=== PATIENT | female | born 1975 | race American Indian/Alaskan Native ===

== ENCOUNTER 2024-01-08 20:16 | Emergency (ER) | payer MEDICAID ==
[~2024-01-08] VITALS: Ht 165.1 cm; Wt 59.1 kg
[~2024-01-08 20:16] MED LIST: DIAZ2TAB3 PO; DOCU-171 PO; NYST15CR36 TP; OLAN15TA35 PO; OXYC-658 PO; TEMA15CA5 PO; ZONI100C87 PO
[2024-01-08 20:57] LABS: BASOPHILS # (AUTO) 0.1 X10'3 (0-0.2); BASOPHILS % (AUTO) 1.1 % (0-1); EOSINOPHILS # (AUTO) 0.2 X10'3 (0-0.9); EOSINOPHILS % (AUTO) 3.3 % (0-6); HEMATOCRIT 33.3 % (35.0-45.0); LYMPHOCYTES # (AUTO) 3.2 X10'3 (1.1-4.8); LYMPHOCYTES % (AUTO) 43.5 % (21-51); MEAN CORPUSCULAR HEMOGLOBIN 26.4 PG (27.0-31.0); MEAN CORPUSCULAR HGB CONC 32.9 g/dL (33.0-36.5); MEAN CORPUSCULAR VOLUME 80.4 FL (78-98); MEAN PLATELET VOLUME 7.2 FL (7.4-10.4); MONOCYTES # (AUTO) 0.5 X10'3 (0-0.9); MONOCYTES % (AUTO) 7.3 % (2-12); NEUTROPHILS # (AUTO) 3.3 X10'3 (1.8-7.7); NEUTROPHILS % (AUTO) 44.8 % (42-75); PLATELET COUNT 365 X10'3 (140-440); RED BLOOD COUNT 4.15 X10'6 (4.20-5.60); RED CELL DISTRIBUTION WIDTH 15.5 % (11.5-14.5); WHITE BLOOD COUNT 7.3 X10'3 (4.5-11.0)
[2024-01-08 21:10] LABS: ALANINE AMINOTRANSFERASE 24 U/L (12-78); ALBUMIN 3.5 G/DL (3.4-5.0); ALBUMIN/GLOBULIN RATIO 1.2 (1.1-1.5); ALKALINE PHOSPHATASE 59 IU/L (46-116); ANION GAP 6 (8-16); ASPARTATE AMINO TRANSFERASE 17 U/L (10-37); BILIRUBIN,TOTAL 0.4 MG/DL (0.1-1.0); BLOOD UREA NITROGEN 18 MG/DL (7-18); BUN/CREATININE RATIO 26.5 (10.0-20.0); CALCIUM 8.2 MG/DL (8.5-10.1); CHLORIDE 108 MMOL/L (99-107); CREATININE 0.68 MG/DL (0.40-0.90); ETHANOL < 10 MG/DL (<10); GLUCOSE 99 MG/DL (70-104); POTASSIUM 3.2 MMOL/L (3.5-5.1); SODIUM 141 MMOL/L (135-145); TOTAL CARBON DIOXIDE 27.3 MMOL/L (24-32); TOTAL PROTEIN 6.5 G/DL (6.4-8.2); eCRCL 92 ML/MIN; eGFR > 90 ML/MIN
[2024-01-08 23:53] LABS: SALICYLATE 3.2 MG/DL (4.0-20.0)
[2024-01-08 23:58] LABS: ACETAMINOPHEN < 2.0 UG/ML (10-30)
[2024-01-09 00:22] LABS: URINE HCG NEGATIVE (NEG)
[2024-01-09 00:25] LABS: BILIRUBIN,URINE NEGATIVE (Neg); CLARITY,URINE SLIGHTLY CLOUDY (Clear); GLUCOSE, URINE NEGATIVE (Neg); KETONES,URINE NEGATIVE (Neg); LEUKOCYTE ESTERASE ,URINE NEGATIVE (Neg); OCCULT BLOOD,URINE NEGATIVE (Neg); PH,URINE 5.5 (4.8-8.0); PROTEIN,URINE NEGATIVE (Neg); UROBILINOGEN,URINE 0.2 E.U/dL (0.2-1.0)
[2024-01-09 00:26] LABS: NITRITES, URINE NEGATIVE (Neg)
[2024-01-09 00:27] LABS: COLOR,URINE DARK YELLOW (Yellow); UA COLLECTION TYPE CLN CATCH MIDSTREAM
[2024-01-09 00:31] LABS: MUCUS STRANDS MANY /LPF (Neg); SQUAMOUS EPITHELIAL CELL,UR MODERATE /LPF (FEW); TRANSITIONAL EPI CELLS,URINE FEW /HPF
[2024-01-09 00:32] LABS: BACTERIA,URINE 2+ /HPF (Neg); HYALINE CASTS 0-3 /LPF (NEGATIVE); RBC,URINE 0-2 /HPF (0-2)
[2024-01-09 00:42] LABS: URINE AMPHETAMINE SCREEN POSITIVE (Neg); URINE BARBITUATE SCREEN POSITIVE (Neg); URINE BENZODIAZEPINES SCREEN NEGATIVE (Neg); URINE CANNABINOID SCREEN POSITIVE (Neg); URINE COCAINE SCREEN NEGATIVE (Neg); URINE METHADONE SCREEN NEGATIVE (Neg); URINE OPIATE SCREEN NEGATIVE (Neg); URINE PHENCYCLIDINE SCREEN NEGATIVE (Neg)
[2024-01-09] MEDS ORDERED: OLAN10TA73 PO (03:02)
[2024-01-09] MEDS ORDERED: ALPR0.5T9 PO (03:02)
[2024-01-09] MEDS ORDERED: PHEN64.8 PO (03:02)
[2024-01-09] MEDS ORDERED: HYDR-3686 PO (03:02)
[2024-01-09] MEDS ORDERED: hydrOXYzine 25 MG tablet PO PRN (05:25)
[2024-01-09] MEDS ORDERED: ALPRAZolam 0.5mg tablet PO PRN (05:25)
[2024-01-09 08:24] LABS: BASOPHILS # (AUTO) 0.1 X10'3 (0-0.2); BASOPHILS % (AUTO) 1.3 % (0-1); EOSINOPHILS # (AUTO) 0.2 X10'3 (0-0.9); EOSINOPHILS % (AUTO) 3.7 % (0-6); HEMOGLOBIN 11.8 g/dl (12.0-16.0); LYMPHOCYTES % (AUTO) 37.6 % (21-51); MEAN CORPUSCULAR HEMOGLOBIN 26.7 PG (27.0-31.0); MEAN CORPUSCULAR HGB CONC 33.6 g/dL (33.0-36.5); MEAN CORPUSCULAR VOLUME 79.4 FL (78-98); MEAN PLATELET VOLUME 7.1 FL (7.4-10.4); MONOCYTES # (AUTO) 0.4 X10'3 (0-0.9); MONOCYTES % (AUTO) 7.8 % (2-12); NEUTROPHILS # (AUTO) 2.7 X10'3 (1.8-7.7); NEUTROPHILS % (AUTO) 49.6 % (42-75); PLATELET COUNT 377 X10'3 (140-440); RED BLOOD COUNT 4.41 X10'6 (4.20-5.60); RED CELL DISTRIBUTION WIDTH 15.5 % (11.5-14.5); WHITE BLOOD COUNT 5.4 X10'3 (4.5-11.0)
[2024-01-09 08:36] LABS: ALANINE AMINOTRANSFERASE 21 U/L (12-78); ALBUMIN 3.2 G/DL (3.4-5.0); ALKALINE PHOSPHATASE 54 IU/L (46-116); ANION GAP 6 (8-16); ASPARTATE AMINO TRANSFERASE 14 U/L (10-37); BILIRUBIN,TOTAL 0.5 MG/DL (0.1-1.0); BLOOD UREA NITROGEN 14 MG/DL (7-18); BUN/CREATININE RATIO 17.7 (10.0-20.0); CALCIUM 8.2 MG/DL (8.5-10.1); CHLORIDE 109 MMOL/L (99-107); CREATININE 0.79 MG/DL (0.40-0.90); GLUCOSE 84 MG/DL (70-104); POTASSIUM 3.9 MMOL/L (3.5-5.1); SODIUM 142 MMOL/L (135-145); TOTAL CARBON DIOXIDE 27.3 MMOL/L (24-32); TOTAL PROTEIN 6.3 G/DL (6.4-8.2); eCRCL 79 ML/MIN; eGFR 78 ML/MIN
[2024-01-09] MEDS: phenobarbital 30mg tablet PO SCH (09:41)
[2024-01-09 10:58] VITALS: BP 123/83; PULSE 87; RESP 18; O2SAT 96
[2024-01-09 12:20] VITALS: TEMP 97.8
[2024-01-09] MEDS ORDERED: olanzapine 10mg tablet PO SCH (21:00)
== END 2024-01-09 12:24 | disposition home or self-care (01) ==
LOC: ER 20:17
DX: R56.9 Unspecified convulsions (principal); Z88.2 Allergy status to sulfonamides; Z88.8 Allergy status to other drugs, medicaments and biological substances; Z20.822 Contact with and (suspected) exposure to COVID-19; Z59.00 Homelessness unspecified; E87.8 Other disorders of electrolyte and fluid balance, not elsewhere classified; Z73.6 Limitation of activities due to disability
CPT/HCPCS: 36415; 80053; 80305; 80320; 80329; 81001; 81025; 85025; 87088; 87811; 99284

== ENCOUNTER 2024-01-12 01:08 | Emergency (ER) | payer MEDICAID ==
[~2024-01-12] VITALS: Ht 165.1 cm; Wt 43.1 kg
[~2024-01-12 01:08] MED LIST changes: +ALPR0.5T9 PO; -DIAZ2TAB3 PO; -DOCU-171 PO; +HYDR-3686 PO; -NYST15CR36 TP; +OLAN10TA73 PO; -OLAN15TA35 PO; -OXYC-658 PO; +PHEN64.8 PO; -TEMA15CA5 PO; -ZONI100C87 PO
[2024-01-12 01:10] VITALS: BP 132/82; PULSE 95; RESP 18; TEMP 99.6; O2SAT 98
== END 2024-01-12 10:08 | disposition left against medical advice (07) ==
LOC: ER 01:09
DX: R50.9 Fever, unspecified (principal); R53.1 Weakness; Z53.21 Procedure and treatment not carried out due to patient leaving prior to being seen by health care provider

== ENCOUNTER 2024-01-19 08:27 | Outpatient (CLI) | payer MEDICAID | END 2024-01-19 23:59 | disposition home or self-care (01) | LOC: RAD 08:27 | PROVIDERS: ATTEND General Practice | DX: R05.1 Acute cough (principal) | CPT/HCPCS: 71046 ==

== ENCOUNTER 2024-01-20 13:48 | Emergency (ER) | payer MEDICAID ==
[~2024-01-20] VITALS: Ht 165.1 cm; Wt 51.8 kg
[2024-01-20 13:56] VITALS: PULSE 97; TEMP 98
[2024-01-20 14:47] LABS: BASOPHILS # (AUTO) 0.1 X10'3 (0-0.2); BASOPHILS % (AUTO) 1.4 % (0-1); EOSINOPHILS # (AUTO) 0.1 X10'3 (0-0.9); EOSINOPHILS % (AUTO) 0.7 % (0-6); HEMATOCRIT 34.9 % (35.0-45.0); HEMOGLOBIN 11.4 g/dl (12.0-16.0); LYMPHOCYTES % (AUTO) 20.4 % (21-51); MEAN CORPUSCULAR HEMOGLOBIN 26.1 PG (27.0-31.0); MEAN CORPUSCULAR HGB CONC 32.6 g/dL (33.0-36.5); MEAN CORPUSCULAR VOLUME 80.2 FL (78-98); MEAN PLATELET VOLUME 6.9 FL (7.4-10.4); MONOCYTES # (AUTO) 0.6 X10'3 (0-0.9); MONOCYTES % (AUTO) 6.6 % (2-12); NEUTROPHILS # (AUTO) 6.9 X10'3 (1.8-7.7); NEUTROPHILS % (AUTO) 70.9 % (42-75); PLATELET COUNT 455 X10'3 (140-440); RED BLOOD COUNT 4.36 X10'6 (4.20-5.60); RED CELL DISTRIBUTION WIDTH 15.2 % (11.5-14.5); WHITE BLOOD COUNT 9.7 X10'3 (4.5-11.0)
[2024-01-20 15:00] LABS: ALBUMIN 3.1 G/DL (3.4-5.0); ANION GAP 9 (8-16); BLOOD UREA NITROGEN 17 MG/DL (7-18); BUN/CREATININE RATIO 23.6 (10.0-20.0); CALCIUM 8.6 MG/DL (8.5-10.1); CHLORIDE 105 MMOL/L (99-107); CREATININE 0.72 MG/DL (0.40-0.90); GLUCOSE 116 MG/DL (70-104); POTASSIUM 4.1 MMOL/L (3.5-5.1); PRO BRAIN NATRIURETIC PEPTIDE 71 PG/ML (0-125); SODIUM 140 MMOL/L (135-145); TOTAL CARBON DIOXIDE 26.5 MMOL/L (24-32); eCRCL 79 ML/MIN; eGFR 87 ML/MIN
[2024-01-20 15:09] LABS: D-DIMER 0.55 MG/L FEU (0-0.50)
[2024-01-20] MEDS ORDERED: iohexol 350MG/ML 100ml bottle IV ONE (15:41)
[2024-01-20 17:00] VITALS: BP 130/81; RESP 18; O2SAT 99
== END 2024-01-20 17:03 | disposition home or self-care (01) ==
LOC: ER 13:48
DX: R53.1 Weakness (principal); R05.9 Cough, unspecified; Z88.2 Allergy status to sulfonamides; Z88.8 Allergy status to other drugs, medicaments and biological substances
CPT/HCPCS: 36415; 71275; 80048; 83880; 84484; 85025; 85379; 93005; 99285; J3490; Q9967

== ENCOUNTER 2024-06-20 21:00 | Inpatient (IN) | payer MEDICAID ==
[~2024-06-20] VITALS: Ht 165.1 cm; Wt 56.7 kg
[2024-06-20] MEDS: ALPRAZolam 0.5mg tablet PO ONE (22:15)
[2024-06-20] MEDS ORDERED: NICOTINE POLACRILEX 2 MG LOZENGE BC PRN (22:25)
[2024-06-20] MEDS ORDERED: magnesium hydroxide 30ml (MOM) UD suspension PO PRN (22:25)
[2024-06-20 22:32] VITALS: RESP 25
[2024-06-20] MEDS: ALPRAZolam 0.5mg tablet PO PRN (23:03)
[2024-06-20] MEDS: olanzapine 10mg tablet PO ONE (23:04)
[2024-06-20] MEDS: traZODone 150mg tablet PO ONE (23:15)
[2024-06-21 07:00] VITALS: RESP 14; O2SAT 99
[2024-06-21 08:00] VITALS: BP 128/82; PULSE 61; RESP 14; TEMP 97.5; O2SAT 99
[2024-06-21] MEDS: nicotine 21mg patch - 24 hr TD SCH (08:00)
[2024-06-21] MEDS: olanzapine 10mg tablet PO SCH (09:12)
[2024-06-21] MEDS ORDERED: ibuprofen tablet 400 MG TABLET PO PRN (09:30)
[2024-06-21 12:01] LABS: CHOL/HDL RATIO 1.6 (0.00-4.99); CHOLESTEROL 112 MG/DL (0-200); HDL CHOLESTEROL 68 MG/DL (35-60); LDL CHOLESTEROL 27 MG/DL (50-100); THYROID STIMULATING HORMONE 1.64 ulU/ml (0.34-4.50); TRIGLYCERIDES 73 MG/DL (20-135)
[2024-06-21 12:06] LABS: HEMOGLOBIN A1C 5.8 % (4.5-6.2)
[2024-06-21 19:00] VITALS: RESP 14; O2SAT 99
[2024-06-21 20:00] VITALS: BP 126/73; PULSE 71; RESP 14; TEMP 98.8; O2SAT 99
[2024-06-21] MEDS: traZODone 150mg tablet PO SCH (20:39)
[2024-06-22 07:00] VITALS: RESP 16; O2SAT 97
[2024-06-22 08:00] VITALS: BP 118/75; PULSE 66; RESP 16; TEMP 98.3; O2SAT 97
[2024-06-22] MEDS: multivitamins, therapeutics tablet PO SCH (08:47)
[2024-06-22 12:00] LABS: BASOPHILS # (AUTO) 0.1 X10'3 (0-0.2); EOSINOPHILS # (AUTO) 0.2 X10'3 (0-0.9); EOSINOPHILS % (AUTO) 2.4 % (0-6); HEMATOCRIT 36.2 % (35.0-45.0); LYMPHOCYTES % (AUTO) 29.6 % (21-51); MEAN CORPUSCULAR HEMOGLOBIN 26.9 PG (27.0-31.0); MEAN CORPUSCULAR HGB CONC 33.3 g/dL (33.0-36.5); MEAN CORPUSCULAR VOLUME 80.8 FL (78-98); MEAN PLATELET VOLUME 6.6 FL (7.4-10.4); MONOCYTES # (AUTO) 0.5 X10'3 (0-0.9); MONOCYTES % (AUTO) 7.7 % (2-12); NEUTROPHILS % (AUTO) 59.3 % (42-75); PLATELET COUNT 431 X10'3 (140-440); RED BLOOD COUNT 4.48 X10'6 (4.20-5.60); RED CELL DISTRIBUTION WIDTH 14.7 % (11.5-14.5); WHITE BLOOD COUNT 6.8 X10'3 (4.5-11.0)
[2024-06-22 12:21] LABS: ALANINE AMINOTRANSFERASE 21 U/L (12-78); ALBUMIN/GLOBULIN RATIO 0.8 (1.1-1.5); ALKALINE PHOSPHATASE 52 IU/L (46-116); ANION GAP 1 (8-16); ASPARTATE AMINO TRANSFERASE 15 U/L (10-37); BILIRUBIN,TOTAL 0.3 MG/DL (0.1-1.0); BLOOD UREA NITROGEN 18 MG/DL (7-18); BUN/CREATININE RATIO 26.9 (10.0-20.0); CALCIUM 8.8 MG/DL (8.5-10.1); CHLORIDE 101 MMOL/L (99-107); CREATININE 0.67 MG/DL (0.40-0.90); GLUCOSE 95 MG/DL (70-104); POTASSIUM 4.6 MMOL/L (3.5-5.1); SODIUM 134 MMOL/L (135-145); TOTAL CARBON DIOXIDE 32.4 MMOL/L (24-32); TOTAL PROTEIN 6.7 G/DL (6.4-8.2); eCRCL 79 ML/MIN; eGFR > 90 ML/MIN
[2024-06-22 19:00] VITALS: RESP 17; O2SAT 93
[2024-06-22 19:10] VITALS: BP 118/68; PULSE 80; RESP 17; TEMP 98.1; O2SAT 93
[2024-06-22 21:20] LABS: BILIRUBIN,URINE NEGATIVE (Neg); COLOR,URINE YELLOW (Yellow); GLUCOSE, URINE NEGATIVE (Neg); KETONES,URINE NEGATIVE (Neg); LEUKOCYTE ESTERASE ,URINE NEGATIVE (Neg); NITRITES, URINE NEGATIVE (Neg); OCCULT BLOOD,URINE NEGATIVE (Neg); PROTEIN,URINE NEGATIVE (Neg); UROBILINOGEN,URINE 0.2 E.U/dL (0.2-1.0)
[2024-06-22 21:40] LABS: BACTERIA,URINE FEW /HPF (Neg); CLARITY,URINE SLIGHTLY CLOUDY (Clear); MUCUS STRANDS FEW /LPF (Neg); SQUAMOUS EPITHELIAL CELL,UR FEW /LPF (FEW); UA COLLECTION TYPE NON-SPECIFIED
[2024-06-23 07:00] VITALS: RESP 14; O2SAT 98
[2024-06-23 08:00] VITALS: BP 109/81; PULSE 91; RESP 16; TEMP 97.7; O2SAT 98
[2024-06-23 09:18] LABS: C DIFF ANTIGEN NEGATIVE (NEGATIVE); C DIFF SPECIMEN=DIARRHEA? ACCEPTABLE; C DIFFICILE TOXINS A&B NEGATIVE (Neg)
[2024-06-23] MEDS: lactose-reduced food (Ensure High Protein) 237ml bottle PO SCH (13:45)
[2024-06-23] MEDS ORDERED: loperamide 2mg capsule PO PRN (14:05)
[2024-06-23] MEDS: loperamide 2mg capsule PO ONE (15:22)
[2024-06-23] MEDS: LIDOcaine 5% patch TP SCH (15:24)
[2024-06-23] MEDS: NICOTINE POLACRILEX 2 MG LOZENGE BC PRN (16:50)
[2024-06-23] MEDS: ALPRAZolam 0.5mg tablet PO ONE (18:41)
[2024-06-23] MEDS: OLANZapine 5mg rapidly disint. tablet PO ONE (18:41)
[2024-06-23 20:00] VITALS: BP 106/71; PULSE 92; RESP 14; TEMP 98; O2SAT 100
[2024-06-24 07:00] VITALS: BP 98/62; PULSE 82; RESP 14; TEMP 98.1; O2SAT 99
[2024-06-24] MEDS: loperamide 2mg capsule PO PRN (08:33)
[2024-06-24] MEDS ORDERED: OLANZapine 5mg rapidly disint. tablet PO ONE (10:20)
[2024-06-24] MEDS: diphenhydrAMINE 25mg capsule PO ONE (10:31)
[2024-06-24] MEDS: LORazepam 1 MG tablet PO ONE (10:31)
[2024-06-24] MEDS: haloperidol 5mg tablet PO ONE (10:31)
[2024-06-24 19:00] VITALS: RESP 16; O2SAT 91
[2024-06-24 19:50] VITALS: BP 104/63; PULSE 91; RESP 16; TEMP 98.6; O2SAT 98
[2024-06-24 23:22] VITALS: RESP 16; O2SAT 98
[2024-06-25 07:00] VITALS: BP 105/65; PULSE 83; RESP 16; TEMP 97.4; O2SAT 98
[2024-06-25] MEDS: baclofen 10mg tablet PO PRN (18:34)
[2024-06-25 19:00] VITALS: RESP 16; O2SAT 98
[2024-06-25 19:56] VITALS: BP 115/73; PULSE 90; RESP 16; TEMP 98.8; O2SAT 98
[2024-06-26 07:00] VITALS: BP 95/65; PULSE 96; RESP 16; TEMP 97.2
[2024-06-26] MEDS: busPIRone 5mg tablet PO SCH (07:23)
[2024-06-26 19:00] VITALS: RESP 16; O2SAT 98
[2024-06-26 19:13] VITALS: BP 111/60; PULSE 96; RESP 16; TEMP 97.8; O2SAT 98
[2024-06-26] MEDS: haloperidol 5mg tablet PO ONE (19:41)
[2024-06-26] MEDS: ALPRAZolam 0.5mg tablet PO ONE (19:42)
[2024-06-27 07:20] VITALS: BP 112/67; PULSE 92; RESP 16; TEMP 97.3; O2SAT 97
[2024-06-27 07:47] VITALS: RESP 16; O2SAT 97
[2024-06-27] MEDS: traMADol 50MG tablet PO PRN (11:38)
[2024-06-27 19:00] VITALS: RESP 16; O2SAT 98
[2024-06-27 20:00] VITALS: BP 103/66; PULSE 91; RESP 16; TEMP 97.9; O2SAT 98
[2024-06-28 07:30] VITALS: BP 107/63; PULSE 91; RESP 16; TEMP 97.4; O2SAT 97
[2024-06-28 19:00] VITALS: BP 106/63; PULSE 98; RESP 16; TEMP 98.3; O2SAT 99
[2024-06-28 20:40] VITALS: BP 99/64; PULSE 96
[2024-06-28] MEDS: prazosin 1mg capsule PO SCH (21:00)
[2024-06-28 22:00] VITALS: BP 114/64; PULSE 99; RESP 16; TEMP 97.6; O2SAT 99
[2024-06-29 07:30] VITALS: BP 100/62; PULSE 95; RESP 12; TEMP 97.5; O2SAT 98
[2024-06-29 07:49] VITALS: RESP 12; O2SAT 98
[2024-06-29 19:00] VITALS: RESP 16; O2SAT 96
[2024-06-29 20:00] VITALS: BP 108/64; PULSE 98; RESP 16; TEMP 98.6; O2SAT 96
[2024-06-29] MEDS: prazosin 1mg capsule PO SCH (21:00)
[2024-06-29] MEDS: temazepam 15mg capsule PO PRN (21:07)
[2024-06-30 07:00] VITALS: RESP 17; O2SAT 97
[2024-06-30] MEDS: lactose-reduced food (Ensure Enlive) - 237ml bottle PO SCH (07:30)
[2024-06-30 08:00] VITALS: BP 109/65; PULSE 71; RESP 14; TEMP 98.5; O2SAT 97
[2024-06-30 15:18] VITALS: RESP 17; O2SAT 97
[2024-06-30 20:00] VITALS: BP 99/60; PULSE 96; RESP 16; TEMP 98.8; O2SAT 97
[2024-06-30] MEDS: OLANZAPINE 5 MG TABLET PO SCH (20:33)
[2024-07-01 07:00] VITALS: RESP 16; O2SAT 95
[2024-07-01] MEDS: olanzapine 10mg tablet PO SCH (07:43)
[2024-07-01 08:00] VITALS: BP 116/64; PULSE 91; RESP 16; TEMP 98; O2SAT 95
[2024-07-01] MEDS: nicotine 21mg patch - 24 hr TD SCH (12:18)
[2024-07-01 19:33] VITALS: BP 99/67; PULSE 94; RESP 18; TEMP 98.3; O2SAT 96
[2024-07-02 07:00] VITALS: RESP 14; O2SAT 97
[2024-07-02 08:00] VITALS: BP 107/68; PULSE 85; RESP 14; TEMP 98.2; O2SAT 97
[2024-07-02 19:09] VITALS: BP 113/71; PULSE 95; RESP 18; TEMP 97.6; O2SAT 96
[2024-07-03 07:00] VITALS: RESP 16; O2SAT 97
[2024-07-03 07:38] VITALS: BP 101/66; PULSE 82; RESP 12; TEMP 97.9; O2SAT 97
[2024-07-03 20:00] VITALS: BP 102/64; PULSE 83; RESP 18; TEMP 98.5; O2SAT 97
[2024-07-03 23:55] VITALS: RESP 18
[2024-07-04 07:00] VITALS: RESP 16; O2SAT 97
[2024-07-04 08:00] VITALS: BP 88/63; PULSE 83; RESP 16; TEMP 97.2; O2SAT 97
[2024-07-04] MEDS ORDERED: HYDR-3686 PO (13:49)
[2024-07-04] MEDS ORDERED: MULT-25 PO (13:49)
[2024-07-04] MEDS ORDERED: NICO-687 TD (13:49)
[2024-07-04] MEDS ORDERED: PHEN64.8 PO (13:49)
[2024-07-04 19:00] VITALS: RESP 15; O2SAT 96
[2024-07-04 20:00] VITALS: BP 130/66; PULSE 94; RESP 16; TEMP 97.2; O2SAT 18
[2024-07-04] MEDS ORDERED: OLAN10TA73 PO (20:24)
[2024-07-04] MEDS: traZODone 50mg tablet PO ONE (23:07)
[2024-07-05 07:00] VITALS: RESP 16; O2SAT 96
[2024-07-05 08:00] VITALS: BP 104/58; PULSE 95; RESP 16; TEMP 97.6; O2SAT 96
[2024-07-05 19:00] VITALS: RESP 15; O2SAT 96
[2024-07-05 20:00] VITALS: BP 104/58; PULSE 94; RESP 15; TEMP 97.7; O2SAT 96
[2024-07-06 07:00] VITALS: BP 102/62; PULSE 83; RESP 16; TEMP 98.3; O2SAT 100
[2024-07-06] MEDS: lactose-reduced food (Ensure Enlive) - 237ml bottle PO SCH (13:04)
[2024-07-06] MEDS: OLANZapine 5mg rapidly disint. tablet PO ONE (13:33)
[2024-07-06] MEDS: ALPRAZolam 0.5mg tablet PO ONE (13:33)
[2024-07-06] MEDS: phenoBARBITAL 30mg tablet PO SCH (16:27)
[2024-07-06 19:00] VITALS: RESP 20; O2SAT 95
[2024-07-06 20:00] VITALS: BP 125/86; PULSE 81; RESP 20; TEMP 97; O2SAT 95
[2024-07-07 07:00] VITALS: RESP 12; O2SAT 97
[2024-07-07] MEDS: OLANZAPINE 5 MG TABLET PO SCH (07:51)
[2024-07-07 08:00] VITALS: BP 115/73; PULSE 84; RESP 12; TEMP 97.2; O2SAT 97
[2024-07-07] MEDS: LORazepam 2 mg/ml vial IM ONE (16:07)
[2024-07-07] MEDS: mag hydrox/Alum hydrox/simeth 30ml oral suspension PO PRN (18:40)
[2024-07-07 19:00] VITALS: BP 115/73; PULSE 84; RESP 12; RESP 15; TEMP 97.2; O2SAT 97
[2024-07-07] MEDS: clotrimazole topical cream 15gm tube TP SCH (20:39)
[2024-07-08 07:00] VITALS: RESP 18; O2SAT 97
[2024-07-08 08:00] VITALS: BP 109/63; PULSE 88; RESP 16; TEMP 97.1; O2SAT 97
[2024-07-08 19:00] VITALS: BP 103/61; PULSE 99; RESP 18; TEMP 98.2; O2SAT 98
[2024-07-09 00:35] VITALS: BP 103/61; PULSE 99; RESP 18; TEMP 98.2; O2SAT 98
[2024-07-09 07:00] VITALS: RESP 16; O2SAT 96
[2024-07-09] MEDS: phenoBARBITAL 30mg tablet PO SCH (07:51)
[2024-07-09 08:00] VITALS: BP 102/62; PULSE 78; RESP 16; TEMP 97.4; O2SAT 96
[2024-07-09 19:00] VITALS: RESP 16; O2SAT 97
[2024-07-09 20:00] VITALS: BP 112/74; PULSE 94; RESP 16; TEMP 97.7; O2SAT 97
[2024-07-10 07:30] VITALS: BP 112/71; PULSE 87; RESP 16; TEMP 97.6; O2SAT 100
== END 2024-07-10 09:40 | disposition home or self-care (01) | DRG 753 ==
LOC: ADULT MH 21:00
PROVIDERS: ADMIT Psychiatry & Neurology Psychiatry; ATTEND Psychiatry & Neurology Psychiatry
PROC: GZHZZZZ Group Psychotherapy (ICD-10-PCS; principal; 2024-06-20)
PROC: GZ51ZZZ Individual Psychotherapy, Behavioral (ICD-10-PCS; 2024-06-22)
DX: F31.9 Bipolar disorder, unspecified (principal); R45.851 Suicidal ideations; F15.10 Other stimulant abuse, uncomplicated; F43.11 Post-traumatic stress disorder, acute; F41.1 Generalized anxiety disorder; F17.210 Nicotine dependence, cigarettes, uncomplicated; R19.7 Diarrhea, unspecified; M54.50 Low back pain, unspecified; G47.8 Other sleep disorders; Z20.822 Contact with and (suspected) exposure to COVID-19; Z88.1 Allergy status to other antibiotic agents; Z79.899 Other long term (current) drug therapy; Z59.00 Homelessness unspecified; Z88.6 Allergy status to analgesic agent; Z88.8 Allergy status to other drugs, medicaments and biological substances; Z76.5 Malingerer [conscious simulation]
CPT/HCPCS: 36415; 80053; 80061; 81001; 83036; 84443; 85025; 87081; 87088; 87324; 87449; 87811; J2060; Q0163

== ENCOUNTER 2024-07-19 08:53 | Emergency (ER) | payer MEDICAID ==
[~2024-07-19 08:53] MED LIST changes: -ALPR0.5T9 PO; +MULT-25 PO; +NICO-687 TD; -PHEN64.8 PO
== END 2024-07-19 11:25 | disposition left against medical advice (07) ==
LOC: ER 08:53
DX: M25.569 Pain in unspecified knee (principal); Z53.21 Procedure and treatment not carried out due to patient leaving prior to being seen by health care provider

== ENCOUNTER 2024-09-03 22:36 | Emergency (ER) | payer MEDICAID ==
[~2024-09-03] VITALS: Ht 165.1 cm; Wt 56.8 kg
[2024-09-03 22:44] VITALS: BP 124/68
[2024-09-03 23:21] LABS: BASOPHILS # (AUTO) 0.1 X10'3 (0-0.2); BASOPHILS % (AUTO) 1.1 % (0-1); EOSINOPHILS # (AUTO) 0.2 X10'3 (0-0.9); EOSINOPHILS % (AUTO) 2.3 % (0-6); HEMATOCRIT 30.4 % (35.0-45.0); HEMOGLOBIN 9.9 g/dl (12.0-16.0); LYMPHOCYTES # (AUTO) 2.6 X10'3 (1.1-4.8); LYMPHOCYTES % (AUTO) 33.4 % (21-51); MEAN CORPUSCULAR HEMOGLOBIN 24.7 PG (27.0-31.0); MEAN CORPUSCULAR HGB CONC 32.4 g/dL (33.0-36.5); MEAN CORPUSCULAR VOLUME 76.3 FL (78-98); MEAN PLATELET VOLUME 7.3 FL (7.4-10.4); MONOCYTES # (AUTO) 0.8 X10'3 (0-0.9); NEUTROPHILS # (AUTO) 4.1 X10'3 (1.8-7.7); NEUTROPHILS % (AUTO) 53.2 % (42-75); PLATELET COUNT 348 X10'3 (140-440); RED BLOOD COUNT 3.99 X10'6 (4.20-5.60); RED CELL DISTRIBUTION WIDTH 15.1 % (11.5-14.5); WHITE BLOOD COUNT 7.7 X10'3 (4.5-11.0)
[2024-09-03 23:34] LABS: ALBUMIN 3.4 G/DL (3.4-5.0); ANION GAP 9 (8-16); BLOOD UREA NITROGEN 15 MG/DL (7-18); BUN/CREATININE RATIO 16.1 (10.0-20.0); CALCIUM 8.4 MG/DL (8.5-10.1); CHLORIDE 107 MMOL/L (99-107); CREATININE 0.93 MG/DL (0.40-0.90); GLUCOSE 103 MG/DL (70-104); MAGNESIUM 1.9 MG/DL (1.5-2.4); POTASSIUM 3.6 MMOL/L (3.5-5.1); SODIUM 143 MMOL/L (135-145); TOTAL CARBON DIOXIDE 27.2 MMOL/L (24-32); eCRCL 66 ML/MIN; eGFR 64 ML/MIN
[2024-09-03] MEDS: LORazepam 2 mg/ml vial IV ONE (23:49)
[2024-09-04 00:31] VITALS: PULSE 83; TEMP 98.4; O2SAT 97
[2024-09-04 00:42] VITALS: RESP 16
[2024-09-04] MEDS ORDERED: OLAN10TA3 PO (10:04)
[2024-09-04] MEDS ORDERED: PHEN-588 PO (10:04)
[2024-09-04] MEDS ORDERED: CLON1TAB2 PO (10:04)
== END 2024-09-04 00:44 | disposition home or self-care (01) ==
LOC: ER 22:36
DX: G40.909 Epilepsy, unspecified, not intractable, without status epilepticus (principal); F41.9 Anxiety disorder, unspecified; Z88.6 Allergy status to analgesic agent; Z88.2 Allergy status to sulfonamides; Z88.8 Allergy status to other drugs, medicaments and biological substances; Z79.899 Other long term (current) drug therapy
CPT/HCPCS: 36415; 80048; 83735; 85025; 96374; 99283; J2060

== ENCOUNTER 2024-09-04 09:00 | Emergency (ER) | payer MEDICAID ==
[~2024-09-04] VITALS: Ht 165.1 cm; Wt 56.8 kg
[2024-09-04 09:10] VITALS: BP 123/92; PULSE 77; RESP 16; TEMP 98.2; O2SAT 97
[2024-09-04] MEDS ORDERED: OLAN10TA3 PO (10:04)
[2024-09-04] MEDS ORDERED: PHEN-588 PO (10:04)
[2024-09-04] MEDS ORDERED: CLON1TAB2 PO (10:04)
== END 2024-09-04 11:26 | disposition home or self-care (01) ==
LOC: ER 09:01
DX: Z76.0 Encounter for issue of repeat prescription (principal); F20.9 Schizophrenia, unspecified; F31.9 Bipolar disorder, unspecified; F15.90 Other stimulant use, unspecified, uncomplicated; Z88.6 Allergy status to analgesic agent; Z88.2 Allergy status to sulfonamides; Z88.8 Allergy status to other drugs, medicaments and biological substances; Z79.899 Other long term (current) drug therapy
CPT/HCPCS: 99281

== ENCOUNTER 2024-09-06 12:56 | Emergency (ER) | payer MEDICAID ==
[~2024-09-06] VITALS: Ht 165.1 cm; Wt 59.3 kg
[~2024-09-06 12:56] MED LIST changes: +CLON1TAB2 PO; +OLAN10TA3 PO; +PHEN-588 PO
[2024-09-06] MEDS: normal saline 1000ml 1,000 ML IV ONE (14:02)
[2024-09-06 14:13] LABS: BASOPHILS # (AUTO) 0.1 X10'3 (0-0.2); BASOPHILS % (AUTO) 0.9 % (0-1); EOSINOPHILS # (AUTO) 0.2 X10'3 (0-0.9); EOSINOPHILS % (AUTO) 2.5 % (0-6); HEMATOCRIT 31.3 % (35.0-45.0); HEMOGLOBIN 10.3 g/dl (12.0-16.0); LYMPHOCYTES # (AUTO) 2.8 X10'3 (1.1-4.8); LYMPHOCYTES % (AUTO) 38.7 % (21-51); MEAN CORPUSCULAR HEMOGLOBIN 25.3 PG (27.0-31.0); MEAN CORPUSCULAR HGB CONC 32.9 g/dL (33.0-36.5); MEAN CORPUSCULAR VOLUME 76.9 FL (78-98); MEAN PLATELET VOLUME 7.4 FL (7.4-10.4); MONOCYTES # (AUTO) 0.7 X10'3 (0-0.9); MONOCYTES % (AUTO) 9.4 % (2-12); NEUTROPHILS # (AUTO) 3.5 X10'3 (1.8-7.7); NEUTROPHILS % (AUTO) 48.5 % (42-75); PLATELET COUNT 341 X10'3 (140-440); RED BLOOD COUNT 4.07 X10'6 (4.20-5.60); RED CELL DISTRIBUTION WIDTH 15.2 % (11.5-14.5); WHITE BLOOD COUNT 7.2 X10'3 (4.5-11.0)
[2024-09-06] MEDS: naloxone 2mg/2ml inj IV STA ×2 (14:20→18:17)
[2024-09-06 14:27] LABS: ALANINE AMINOTRANSFERASE 15 U/L (12-78); ALBUMIN 3.3 G/DL (3.4-5.0); ALKALINE PHOSPHATASE 73 IU/L (46-116); ANION GAP 6 (8-16); ASPARTATE AMINO TRANSFERASE 19 U/L (10-37); BILIRUBIN,TOTAL 0.5 MG/DL (0.1-1.0); BLOOD UREA NITROGEN 15 MG/DL (7-18); BUN/CREATININE RATIO 16.7 (10.0-20.0); CALCIUM 8.2 MG/DL (8.5-10.1); CHLORIDE 109 MMOL/L (99-107); GLUCOSE 71 MG/DL (70-104); POTASSIUM 4.1 MMOL/L (3.5-5.1); SODIUM 143 MMOL/L (135-145); TOTAL CARBON DIOXIDE 28.4 MMOL/L (24-32); TOTAL PROTEIN 6.6 G/DL (6.4-8.2); eCRCL 69 ML/MIN; eGFR 67 ML/MIN
[2024-09-06 16:26] LABS: BILIRUBIN,URINE NEGATIVE (Neg); CLARITY,URINE SLIGHTLY CLOUDY (Clear); COLOR,URINE STRAW (Yellow); GLUCOSE, URINE NEGATIVE (Neg); KETONES,URINE NEGATIVE (Neg); LEUKOCYTE ESTERASE ,URINE TRACE (Neg); NITRITES, URINE NEGATIVE (Neg); OCCULT BLOOD,URINE NEGATIVE (Neg); PH,URINE 7.5 (4.8-8.0); PROTEIN,URINE NEGATIVE (Neg); UROBILINOGEN,URINE 0.2 E.U/dL (0.2-1.0)
[2024-09-06 16:27] LABS: UA COLLECTION TYPE CLN CATCH MIDSTREAM
[2024-09-06 16:33] LABS: BACTERIA,URINE FEW /HPF (Neg); MUCUS STRANDS NONE SEEN /LPF (Neg); RBC,URINE NONE SEEN /HPF (0-2); SQUAMOUS EPITHELIAL CELL,UR MODERATE /LPF (FEW); WBC,URINE 0-4 /HPF (0-4)
[2024-09-06 17:01] LABS: URINE AMPHETAMINE SCREEN NEGATIVE (Neg); URINE BARBITUATE SCREEN NEGATIVE (Neg); URINE BENZODIAZEPINES SCREEN NEGATIVE (Neg); URINE CANNABINOID SCREEN NEGATIVE (Neg); URINE COCAINE SCREEN NEGATIVE (Neg); URINE METHADONE SCREEN POSITIVE (Neg); URINE OPIATE SCREEN NEGATIVE (Neg); URINE PHENCYCLIDINE SCREEN NEGATIVE (Neg)
[2024-09-06 20:17] VITALS: BP 128/71; PULSE 77; RESP 18; TEMP 98.5; O2SAT 100
== END 2024-09-06 19:42 | disposition home or self-care (01) ==
LOC: ER 12:58
DX: R40.0 Somnolence (principal); F15.20 Other stimulant dependence, uncomplicated; Z88.2 Allergy status to sulfonamides; Z88.6 Allergy status to analgesic agent; Z88.8 Allergy status to other drugs, medicaments and biological substances
CPT/HCPCS: 36415; 80053; 80305; 81001; 85025; 87088; 96361; 96374; 96376; 99285; J2310; J7030; C1758

== ENCOUNTER 2024-09-10 14:25 | Emergency (ER) | payer MEDICAID ==
[~2024-09-10] VITALS: Ht 165.1 cm; Wt 59.3 kg
[2024-09-10 16:45] LABS: BASOPHILS # (AUTO) 0.1 X10'3 (0-0.2); BASOPHILS % (AUTO) 0.8 % (0-1); EOSINOPHILS # (AUTO) 0.2 X10'3 (0-0.9); EOSINOPHILS % (AUTO) 2.1 % (0-6); HEMATOCRIT 30.8 % (35.0-45.0); LYMPHOCYTES # (AUTO) 1.5 X10'3 (1.1-4.8); LYMPHOCYTES % (AUTO) 20.1 % (21-51); MEAN CORPUSCULAR HGB CONC 32.6 g/dL (33.0-36.5); MEAN CORPUSCULAR VOLUME 76.8 FL (78-98); MEAN PLATELET VOLUME 7.3 FL (7.4-10.4); MONOCYTES # (AUTO) 0.7 X10'3 (0-0.9); PLATELET COUNT 301 X10'3 (140-440); RED BLOOD COUNT 4.01 X10'6 (4.20-5.60); RED CELL DISTRIBUTION WIDTH 15.6 % (11.5-14.5); WHITE BLOOD COUNT 7.4 X10'3 (4.5-11.0)
[2024-09-10 17:07] LABS: ALANINE AMINOTRANSFERASE 20 U/L (12-78); ALBUMIN 3.1 G/DL (3.4-5.0); ALKALINE PHOSPHATASE 69 IU/L (46-116); ANION GAP 7 (8-16); ASPARTATE AMINO TRANSFERASE 24 U/L (10-37); BILIRUBIN,TOTAL 0.3 MG/DL (0.1-1.0); BLOOD UREA NITROGEN 14 MG/DL (7-18); BUN/CREATININE RATIO 17.3 (10.0-20.0); CALCIUM 8.3 MG/DL (8.5-10.1); CHLORIDE 107 MMOL/L (99-107); CREATININE 0.81 MG/DL (0.40-0.90); ETHANOL < 10 MG/DL (<10); GLUCOSE 98 MG/DL (70-104); LIPASE 177 U/L (16-77); POTASSIUM 3.6 MMOL/L (3.5-5.1); SODIUM 141 MMOL/L (135-145); TOTAL CARBON DIOXIDE 26.9 MMOL/L (24-32); TOTAL PROTEIN 6.3 G/DL (6.4-8.2); eCRCL 76 ML/MIN; eGFR 75 ML/MIN
[2024-09-10 17:16] VITALS: TEMP 98.1
[2024-09-10] MEDS ORDERED: iohexol 300mg/ml 100ml inj. ONE (21:06)
[2024-09-10 21:48] LABS: BILIRUBIN,URINE NEGATIVE (Neg); CLARITY,URINE CLEAR (Clear); COLOR,URINE YELLOW (Yellow); GLUCOSE, URINE NEGATIVE (Neg); KETONES,URINE NEGATIVE (Neg); LEUKOCYTE ESTERASE ,URINE NEGATIVE (Neg); NITRITES, URINE NEGATIVE (Neg); OCCULT BLOOD,URINE NEGATIVE (Neg); PROTEIN,URINE NEGATIVE (Neg); URINE HCG NEGATIVE (NEG); UROBILINOGEN,URINE 0.2 E.U/dL (0.2-1.0)
[2024-09-10] MEDS ORDERED: NALO4SPR BOTHNARES (21:53)
[2024-09-10 22:01] LABS: URINE AMPHETAMINE SCREEN NEGATIVE (Neg); URINE BARBITUATE SCREEN POSITIVE (Neg); URINE BENZODIAZEPINES SCREEN NEGATIVE (Neg); URINE CANNABINOID SCREEN POSITIVE (Neg); URINE COCAINE SCREEN NEGATIVE (Neg); URINE METHADONE SCREEN POSITIVE (Neg); URINE OPIATE SCREEN NEGATIVE (Neg); URINE PHENCYCLIDINE SCREEN NEGATIVE (Neg)
[2024-09-10 22:18] LABS: UA COLLECTION TYPE VOIDED
[2024-09-10 23:00] VITALS: O2SAT 97
[2024-09-10 23:30] VITALS: BP 165/108; PULSE 71; RESP 14
== END 2024-09-10 23:55 | disposition home or self-care (01) ==
LOC: ER 14:26
DX: T40.2X1A Poisoning by other opioids, accidental (unintentional), initial encounter (principal); D64.9 Anemia, unspecified; F15.90 Other stimulant use, unspecified, uncomplicated; Z88.2 Allergy status to sulfonamides; Z88.6 Allergy status to analgesic agent; Z88.8 Allergy status to other drugs, medicaments and biological substances; Z79.899 Other long term (current) drug therapy; Z59.00 Homelessness unspecified
CPT/HCPCS: 36415; 70450; 74177; 80053; 80305; 80320; 81003; 81025; 83690; 85025; 93005; 99285; Q9967

== ENCOUNTER 2024-09-16 11:46 | Emergency (ER) | payer MEDICAID ==
[~2024-09-16] VITALS: Ht 167.6 cm; Wt 34.1 kg
[~2024-09-16 11:46] MED LIST changes: +NALO4SPR BOTHNARES
[2024-09-16 12:54] LABS: BASOPHILS # (AUTO) 0.1 X10'3 (0-0.2); BASOPHILS % (AUTO) 0.9 % (0-1); EOSINOPHILS # (AUTO) 0.3 X10'3 (0-0.9); EOSINOPHILS % (AUTO) 3.4 % (0-6); HEMATOCRIT 32.9 % (35.0-45.0); HEMOGLOBIN 10.7 g/dl (12.0-16.0); LYMPHOCYTES # (AUTO) 2.3 X10'3 (1.1-4.8); LYMPHOCYTES % (AUTO) 25.3 % (21-51); MEAN CORPUSCULAR HGB CONC 32.6 g/dL (33.0-36.5); MEAN CORPUSCULAR VOLUME 76.6 FL (78-98); MEAN PLATELET VOLUME 7.4 FL (7.4-10.4); MONOCYTES # (AUTO) 0.6 X10'3 (0-0.9); MONOCYTES % (AUTO) 6.2 % (2-12); NEUTROPHILS # (AUTO) 5.9 X10'3 (1.8-7.7); NEUTROPHILS % (AUTO) 64.2 % (42-75); PLATELET COUNT 373 X10'3 (140-440); RED CELL DISTRIBUTION WIDTH 16.2 % (11.5-14.5); WHITE BLOOD COUNT 9.2 X10'3 (4.5-11.0)
[2024-09-16] MEDS: LORazepam 1 MG tablet PO ONE (12:59)
[2024-09-16 13:15] LABS: BILIRUBIN,URINE NEGATIVE (Neg); CLARITY,URINE CLEAR (Clear); COLOR,URINE YELLOW (Yellow); GLUCOSE, URINE NEGATIVE (Neg); KETONES,URINE NEGATIVE (Neg); LEUKOCYTE ESTERASE ,URINE NEGATIVE (Neg); NITRITES, URINE NEGATIVE (Neg); OCCULT BLOOD,URINE NEGATIVE (Neg); PROTEIN,URINE NEGATIVE (Neg); UROBILINOGEN,URINE 0.2 E.U/dL (0.2-1.0)
[2024-09-16 13:20] LABS: URINE AMPHETAMINE SCREEN NEGATIVE (Neg); URINE BARBITUATE SCREEN POSITIVE (Neg); URINE BENZODIAZEPINES SCREEN NEGATIVE (Neg); URINE CANNABINOID SCREEN NEGATIVE (Neg); URINE COCAINE SCREEN NEGATIVE (Neg); URINE METHADONE SCREEN POSITIVE (Neg); URINE OPIATE SCREEN NEGATIVE (Neg); URINE PHENCYCLIDINE SCREEN NEGATIVE (Neg)
[2024-09-16 13:21] LABS: UA COLLECTION TYPE CLN CATCH MIDSTREAM
[2024-09-16 13:26] LABS: ALBUMIN 3.6 G/DL (3.4-5.0); ANION GAP 7 (8-16); BLOOD UREA NITROGEN 12 MG/DL (7-18); CALCIUM 8.2 MG/DL (8.5-10.1); CHLORIDE 103 MMOL/L (99-107); CREATININE 0.92 MG/DL (0.40-0.90); ETHANOL < 10 MG/DL (<10); GLUCOSE 97 MG/DL (70-104); POTASSIUM 4.2 MMOL/L (3.5-5.1); SODIUM 137 MMOL/L (135-145); THYROID STIMULATING HORMONE 1.43 ulU/ml (0.34-4.50); TOTAL CARBON DIOXIDE 26.8 MMOL/L (24-32); eCRCL 40 ML/MIN; eGFR 65 ML/MIN
[2024-09-16] MEDS ORDERED: METH-603 PO (13:47)
[2024-09-16] MEDS ORDERED: OLAN10TA3 PO (13:47)
[2024-09-16] MEDS ORDERED: NICO-687 TOP (13:47)
[2024-09-16] MEDS ORDERED: NICO-503 MM (13:47)
[2024-09-16] MEDS ORDERED: PHEN-588 PO (13:47)
[2024-09-16] MEDS ORDERED: CLON-850 PO (13:47)
[2024-09-16] MEDS ORDERED: PHEN60TA11 PO (14:20)
[2024-09-16] MEDS: ziprasidone 20mg capsule PO ONE (14:56)
[2024-09-16] MEDS: diphenhydrAMINE 2%/zinc acetate cream TP PRN (17:02)
[2024-09-16] MEDS: phenoBARBITAL 30mg tablet PO SCH (21:26)
[2024-09-16] MEDS: olanzapine 10mg tablet PO SCH (21:26)
[2024-09-16] MEDS: clonazePAM 1mg tablet PO PRN (21:26)
[2024-09-17] MEDS: nicotine 21mg patch - 24 hr TD SCH (09:05)
[2024-09-17] MEDS: methadone 10mg tablet PO SCH (09:17)
[2024-09-17 16:48] LABS: URINE HCG NEGATIVE (NEG)
[2024-09-17 17:00] LABS: CHOL/HDL RATIO 1.8 (0.00-4.99); CHOLESTEROL 127 MG/DL (0-200); HDL CHOLESTEROL 72 MG/DL (35-60); LDL CHOLESTEROL 28 MG/DL (50-100)
[2024-09-17 17:12] LABS: TRIGLYCERIDES 229 MG/DL (20-135)
[2024-09-17] MEDS: acetaminophen 325mg tablet PO ONE (20:19)
[2024-09-18] MEDS: acetaminophen 325mg tablet PO ONE (07:23)
[2024-09-18] MEDS: amox tr/potassium clavulanate 875/125mg TAB PO ONE (07:23)
[2024-09-18] MEDS ORDERED: AMOX-580 PO (07:32)
[2024-09-18] MEDS: NICOTINE POLACRILEX 2 MG LOZENGE BC PRN (09:49)
[2024-09-18 15:02] VITALS: BP 111/74; PULSE 72; RESP 16; TEMP 98; O2SAT 99
== END 2024-09-18 12:25 ==
LOC: ER 11:47
DX: F32.A Depression, unspecified (principal); R45.851 Suicidal ideations; F41.9 Anxiety disorder, unspecified; F15.90 Other stimulant use, unspecified, uncomplicated; Z88.2 Allergy status to sulfonamides; Z88.6 Allergy status to analgesic agent; Z88.8 Allergy status to other drugs, medicaments and biological substances; Z79.899 Other long term (current) drug therapy; Z59.00 Homelessness unspecified; Z20.822 Contact with and (suspected) exposure to COVID-19
CPT/HCPCS: 36415; 80048; 80061; 80305; 80320; 81003; 81025; 84443; 85025; 87811; 99285

== ENCOUNTER 2024-12-24 07:43 | Emergency (ER) | payer MEDICAID ==
[~2024-12-24] VITALS: Ht 165.1 cm; Wt 52.3 kg
[~2024-12-24 07:43] MED LIST changes: +CLON-850 PO; -CLON1TAB2 PO; -HYDR-3686 PO; +METH-603 PO; -NALO4SPR BOTHNARES; +NICO-503 MM; -NICO-687 TD; +NICO-687 TOP; -OLAN10TA73 PO; +PHEN60TA11 PO
[2024-12-24 07:50] VITALS: TEMP 97.3
[2024-12-24] MEDS ORDERED: PHEN-786 PO (08:04)
[2024-12-24] MEDS ORDERED: AMOX-580 PO (08:04)
--- NOTE | 2024-12-24 08:05 | Physician Documentation ---
History of Present Illness ~ Chief Complaint: Urinary Symptoms Stated Complaint: BLADDER INFECTION Time Seen by MD: 08:00 Primary Medical Doctor: ELISSA PACKER This is a 49-year-old female who presents for evaluation of four days of urinary frequency, dysuria, bladder pain. The particular palliating or aggravating factors. Similar to urinary tract infection that she had for years ago. Does report some right flank pain. Denies any fever or chills. Denies any nausea or vomiting. Not allergic to any antibiotics. Denies any other symptoms. Smokes. Medication Reconciliation Allergies: Coded Allergies: NSAIDS (Non-Steroidal Anti-Inflamma (Verified Allergy, Unknown, 12/24/24) Sulfa (Sulfonamide Antibiotics) (Verified Allergy, Unknown, 12/24/24) carbamazepine (Verified Allergy, Unknown, 12/24/24) divalproex sodium (Verified Allergy, Unknown, 12/24/24) gabapentin (Verified Allergy, Unknown, 12/24/24) ibuprofen (Verified Allergy, Unknown, 12/24/24) lamotrigine (Verified Allergy, Unknown, 09/10/24) levetiracetam (Verified Allergy, Unknown, 09/10/24) phenytoin (Verified Allergy, Unknown, 09/10/24) quetiapine (Verified Allergy, Unknown, 09/10/24) topiramate (Verified Allergy, Unknown, 09/10/24) Scheduled Amox Tr/Potassium Clavulanate 875/125 MG (Augmentin 875/125 MG), 1 TAB PO Q12H Methadone Hcl* (Dolophine*), 100 MG PO DAILY, (Reported) Multivitamin with Folic Acid (Thera Tablet), 1 EACH PO DAILY Nicotine 21 MG Patch* (Habitrol 21 MG Patch*), 1 PATCH TOP DAILY, (Reported) Olanzapine (Zyprexa), 1 TAB PO BID, (Reported) Phenazopyridine Hcl (Pyridium tablet), 1 TAB PO Q8H Phenobarbital (Phenobarbital), 1 TAB PO Q12H, (Reported) Phenobarbital (Phenobarbital), 60 MG PO Q12H, (Reported) Scheduled PRN Clonazepam (Klonopin), 2 TAB PO BID PRN for anxiety, (Reported) Nicotine Polacrilex* (Commit Lozenge*), 1 LOZENGE MM Q2H PRN for WHEN URGE TO SMOKE, (Reported) Past Medical History Patient History: FH: suicide GRANDFATHER OR GRANDMOTHER, Onset:60 years & older (Grandfather comitted suicide) Alcohol Use: None Drug Use: methamphetamine Lives In: Homeless Review of Systems ROS 10 point review of systems was performed and unless noted above in HPI is negative for acute process/complaint. Physical Exam Vital Signs: Temperature: 97.3, Heart Rate: 97, Respiratory Rate: 14, BP: 106/74, Pulse Oximetry: 98, Weight: 52.270 Physical Exam GENERAL: Awake, alert, oriented, GCS 15, no apparent distress, non-toxic appearing, answers questions, follows commands appropriately. Examined in bed 6. HEENT: Atraumatic, normocephalic, pupils equal, extraocular muscles intact, sclerae anicteric, mucus membranes moist, oropharynx is clear, no stridor. NECK: supple, full active range of motion, trachea midline, no thyromegaly, no lymphadenopathy, no JVD. CARDIOVASCULAR: regular rate/rhythm, no murmurs/gallops/rubs, Pulses are 2+ in all extremities and symmetric. Capillary refill less than 2 seconds. PULMONARY: Nonlabored, good air movement ,no respiratory distress, speaking in full sentences, clear to auscultation bilaterally, no wheezing, no ronchi, no rales, no accessory muscle use. GASTROINTESTINAL: Soft, suprapubic tenderness to palpation reproducing chief complaint, non-distended, normal active bowel sounds, no organomegaly, no pulsatile masses, mild right CVA tenderness. NEUROLOGIC: Lucid with normal mental status. Normal facial symmetry. Moves all extremities symmetrically and with purpose. No truncal ataxia. Speech is fluid without evidence of dysarthria or aphasia, no focal deficits appreciated. MUSCULOSKELETAL: There is full range of motion of all extremities. There is no joint pain or joint swelling or joint erythema. There is no muscle pain or tenderness or swelling. EXTREMITIES: warm, well-perfused, no cyanosis, no clubbing, no edema, no acute deformities. Skin: warm, dry, no rashes or lesions, no jaundice, no petechiae orpurpura. No ecchymosis. PSYCHIATRIC: Normal affect, normal insight, normal concentration. Focused exam: [] No guarding or rebound Progress Results/Orders Results/Orders Orders - LASHELL HADLEY DO Hcg, Ur Ql (5/6/25 08:04) Drug Screen, Urine (12/24/24 08:04) Cult Urine + [place] [address] (12/24/24 08:18) Completed Orders - LASHELL HADLEY DO Ua W/Microscopic, Cult If Ind (12/24/24 07:50) Vital Signs 12/24/24 07:50 Temp 97.3 Pulse 97 Resp 14 B/P (MAP) 106/74 Pulse Ox 98 Laboratory Tests Test 12/24/24 07:50 Urine Specimen Description Voided Urine Color Yellow Urine Clarity Cloudy Urine pH 6.0 Urine Specific [place] >=1.030 Urine Protein Trace Urine Glucose (UA) Negative Urine Ketones Negative Urine Occult Blood Negative Urine Nitrite Negative Urine Bilirubin Negative Urine Urobilinogen 0.2 Urine Leukocyte Esterase Small H Urine RBC None seen Urine WBC Tntc H Urine Squamous Epithelial Cells Moderate Urine Bacteria 2+ Urine Mucus Few Urine Culture Indicated Indicated Volume Urine Centrifuged 10 ml Urine Comment Drug Screen Comment Medical Decision Making Findings Facility Status: ED Holds, [facility] process The plan was discussed with the patient, who demonstrates clear understanding of the plan and is in agreement with the plan unless otherwise noted in the chart. All questions have been answered, all concerns were addressed unless otherwise documented. I was available throughout their ED stay for frequent reassessment and questions. Differential Diagnoses (considered and possible or likely): [Urinary tract infection, pyelitis, pyelonephritis, less likely kidney stone I] ??Differential Diagnoses (considered and unlikely, not requiring evaluation currently): [Clinically not consistent with the acute intra-abdominal process requiring surgery] MDM Data Please see [facility] for the following: Independent Historians and external Records Review. Historian: [Patient] Independent Historians: ?[Record review] Medication Management: [Reviewed medication list] Social History and determinants: [Reviewed] Please see the body of the note for the following: Any independent interpretations of ECG, imaging studies. All vitals signs/haemodynamics, ordered tests were independently reviewed and interpreted by myself. Nursing triage complaint and vitals reviewed, additional nursing notes were reviewed as available and I agree unless otherwise noted or documented in contradiction in the chart Vital Signs: Independently reviewed Labs: Independently interpreted Imaging: Independently interpreted Old Medical Records: Independently reviewed, see [facility] for relevant summary and information Pulse Oximetry: [97%] interpreted as [normal on room air] by me Additionally notably showing: [Hemodynamically stable] UA is consistent with UTI. Tests considered but not ordered include: [Blood work and imaging has been considerably does not appear to be necessary] Social Determinants of Health Impact: Patient was evaluated in [facility], or [facility] [place] with limited access to healthcare due to below par ratio of patient to medical providers. [] Comorbid Conditions Impacting Present Evaluation and Care/Treatment: [Prior history of UTIs] Management Discussions with other Healthcare Providers: [Non] Treatment and Disposition Medication Management (Given or considered): []. See EMR for details Consideration for Hospitalization/Escalation/Deescalation of Care: Admission for observation has been considered, [however the patient is able to tolerate p.o., their symptoms are controlled, they are able to rely on oral medications, and their chief complaint/diagnosis can be managed on outpatient basis.] ?ED Course:?[No clinical deterioration.] ?Shared decision making:?[Patient is hemodynamically stable for discharge home with follow with their primary care provider. [ ] Specific and cautious return precautions provided and discussed with full understanding. Any incidental findings were also discussed and follow up recommendations given. [] All questions answered. Patient/family were able to verbalize back return precautions. Patient/family agree to plan. Copies of imaging and laboratory studies were provided.] Code status:?FULL Please see the full Electronic Medical Record for full details of nursing documentation, medications list, other records of complete past medical history and conditions, vital signs, laboratory studies, and any radiologic study interpretations by radiologists. Portions of this note were completed using [employer] dictation software and as a result there may exist minor errors in spelling. I have reviewed elements of past family and social history and agree as included in note. Departure Disposition: HOME / SELF CARE / HOMELESS Impression: Primary Impression: Acute urinary tract infection Condition: Improved Discharge Instructions: Urinary Tract Infection, Adult Referrals: NO PRIMARY CARE PROVIDER (PCP) Prescriptions Phenazopyridine Hcl (Pyridium tablet) 100 Mg Tablet 1 TAB PO Q8H for urinary discomfort for 2 Days, #6 TAB 0 Refills Prov: LASHELL HADLEY DO 12/24/ Amox Tr/Potassium Clavulanate 875/125 MG (Augmentin 875/125 MG) 875 Mg-125 Mg Tablet 1 TAB PO Q12H for 10 Days, #20 TAB Prov: LASHELL HADLEY DO 12/24/24 Education Educated: Patient Educated regarding: diagnosis, treatment, prognosis, need for follow up Signature Scribe Signature: No scribe Attestation: This note accurately reflects clinical decisions, work performed by myself, DO JOMAR Hua NICHOLAS M DO December 24, 2024 08:05
[2024-12-24 08:10] LABS: BILIRUBIN,URINE NEGATIVE (Neg); CLARITY,URINE CLOUDY (Clear); COLOR,URINE YELLOW (Yellow); GLUCOSE, URINE NEGATIVE (Neg); KETONES,URINE NEGATIVE (Neg); LEUKOCYTE ESTERASE ,URINE SMALL (Neg); NITRITES, URINE NEGATIVE (Neg); OCCULT BLOOD,URINE NEGATIVE (Neg); PROTEIN,URINE TRACE mg/dl (Neg); UROBILINOGEN,URINE 0.2 E.U/dL (0.2-1.0)
[2024-12-24 08:16] LABS: UA COLLECTION TYPE VOIDED
[2024-12-24 08:17] LABS: RBC,URINE NONE SEEN /HPF (0-2); WBC,URINE TNTC /HPF (0-4)
[2024-12-24 08:18] LABS: BACTERIA,URINE 2+ /HPF (Neg); MUCUS STRANDS FEW /LPF (Neg); SQUAMOUS EPITHELIAL CELL,UR MODERATE /LPF (FEW)
[2024-12-24 08:27] VITALS: BP 106/74; PULSE 97; RESP 15; O2SAT 98
[2024-12-24 08:29] LABS: URINE HCG NEGATIVE (NEG)
[2024-12-24 08:30] LABS: URINE AMPHETAMINE SCREEN POSITIVE (Neg); URINE BARBITUATE SCREEN POSITIVE (Neg); URINE BENZODIAZEPINES SCREEN NEGATIVE (Neg); URINE CANNABINOID SCREEN POSITIVE (Neg); URINE COCAINE SCREEN NEGATIVE (Neg); URINE METHADONE SCREEN NEGATIVE (Neg); URINE OPIATE SCREEN NEGATIVE (Neg); URINE PHENCYCLIDINE SCREEN NEGATIVE (Neg)
== END 2024-12-24 08:28 | disposition home or self-care (01) ==
LOC: ER 07:44
DX: N39.0 Urinary tract infection, site not specified (principal); F17.200 Nicotine dependence, unspecified, uncomplicated; F15.90 Other stimulant use, unspecified, uncomplicated; Z88.2 Allergy status to sulfonamides; Z88.8 Allergy status to other drugs, medicaments and biological substances; Z88.6 Allergy status to analgesic agent; Z79.899 Other long term (current) drug therapy; Z59.00 Homelessness unspecified
CPT/HCPCS: 80305; 81001; 81025; 87077; 87088; 87186; 99283

== ENCOUNTER 2025-01-17 15:21 | Emergency (ER) | payer MEDICAID ==
[~2025-01-17] VITALS: Ht 165.1 cm; Wt 46.4 kg
[~2025-01-17 15:21] MED LIST changes: +PHEN-786 PO
[2025-01-17 15:23] VITALS: BP 107/75; PULSE 93; O2SAT 98
--- NOTE | 2025-01-17 15:59 | RADIOLOGY REPORT ---
CLINICAL INDICATION: ANKLE PAIN TECHNIQUE: R DI ANKLE, COMPLETE(3VW MIN) Comparison: None FINDINGS/IMPRESSION: : There is no evidence of acute fracture or dislocation. Soft tissues are unremarkable.
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
[2025-01-17 17:36] VITALS: RESP 16
[2025-01-17] MEDS: ketorolac trometh 15mg/ml vial 15 MG/ML ML IM ONE (17:36)
[2025-01-17] MEDS ORDERED: OLAN10TA3 PO (18:06)
[2025-01-17] MEDS ORDERED: PHEN-588 PO (18:06)
[2025-01-17 18:25] VITALS: TEMP 97.6
== END 2025-01-17 18:28 | disposition home or self-care (01) ==
LOC: ER 15:21
DX: M79.604 Pain in right leg (principal); G40.909 Epilepsy, unspecified, not intractable, without status epilepticus; F15.90 Other stimulant use, unspecified, uncomplicated; Z76.0 Encounter for issue of repeat prescription; Z88.2 Allergy status to sulfonamides; Z88.6 Allergy status to analgesic agent; Z88.8 Allergy status to other drugs, medicaments and biological substances; Z79.899 Other long term (current) drug therapy; Z59.00 Homelessness unspecified
CPT/HCPCS: 73610; 96372; 99283; J1885

== ENCOUNTER 2025-02-05 07:13 | Emergency (ER) | payer MEDICAID ==
[~2025-02-05] VITALS: Ht 165.1 cm; Wt 45.5 kg
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
[2025-02-05] MEDS: diphenhydrAMINE 50 mg/ml inj IM ONE (07:32)
[2025-02-05] MEDS: ketorolac trometh 15mg/ml vial 15 MG/ML ML IM ONE (07:33)
[2025-02-05] MEDS: acetaminophen 325mg tablet PO ONE (07:33)
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
[2025-02-05 09:17] VITALS: BP 149/89; PULSE 78; RESP 18; TEMP 97.2; O2SAT 100
== END 2025-02-05 09:18 | disposition home or self-care (01) ==
LOC: ER 07:14
DX: S00.83XA Contusion of other part of head, initial encounter (principal); G43.909 Migraine, unspecified, not intractable, without status migrainosus; Z88.6 Allergy status to analgesic agent; Z88.2 Allergy status to sulfonamides; Z88.8 Allergy status to other drugs, medicaments and biological substances; Z79.899 Other long term (current) drug therapy; F15.90 Other stimulant use, unspecified, uncomplicated; Z59.00 Homelessness unspecified; Y04.0XXA Assault by unarmed brawl or fight, initial encounter; Y93.89 Activity, other specified; Y92.89 Other specified places as the place of occurrence of the external cause; Y99.8 Other external cause status
CPT/HCPCS: 70450; 70486; 96372; 99285; J1200; J1885